=== PATIENT | female | born 1995 | race Caucasian/White ===

== ENCOUNTER → 2017-07-23 | Outpatient (CLI) | payer BC ==
[2017-01-01 14:08] VITALS: BP 118/59
[2017-07-23 08:12] LABS: HEMATOCRIT 37.7 % (36.0-47.0)
[2017-07-23 08:14] LABS: BLOOD UREA NITROGEN 9 mg/dL (7-18); CALCIUM 9.3 mg/dL (8.5-10.1); CARBON DIOXIDE 29.2 mmol/L (21-32); CHLORIDE 102 mmol/L (98-107); CREATININE 0.79 mg/dL (0.55-1.02); SODIUM 138 mmol/L (136-145); eGFR BLACK RACES > 60 (>60); eGFR NON BLACK RACES > 60 (>60)
[2017-07-23 10:25] LABS: FREE T4 (FREE THYROXINE) 0.9 ng/dL (0.76-1.46); TSH (3RD GENERATION) 9.767 uIU/mL (0.358-3.74)
== END | disposition home or self-care (01) | DRG 313 ==
LOC: LAB 07:36 → EDSTATUS 15:06
PROVIDERS: ATTEND Specialist
DX: R07.89 Other chest pain (principal); R00.2 Palpitations
CPT/HCPCS: 36415; 80048; 84439; 84443; 84481; 85014; 85018